=== PATIENT | male | born 1990 | race African-American/Black ===

== ENCOUNTER → 2021-08-28 12:53 | Emergency (ER) | payer SELFPAY ==
[~2021-08-28 12:53] MED LIST: Ketorolac Tromethamine 30 MG/ML VIAL ONE; Morphine 4 MG/ML VIAL ONE; Ondansetron PF 4 MG/2 ML Vial ONE
[2021-08-28 14:38] LABS: #Monocytes 0.9 10x3/uL (0.0-1.1); #Neutrophils 7.5 10x3/uL (1.5-8.4); %Basophils 0.3 % (0.0-2.0); %Eosinophils 0.4 % (0.0-6.0); %Lymphocytes 20.1 % (18.0-47.0); %Monocytes 8.4 % (0.0-10.0); %Neutrophils 70.4 % (40.0-75.0); Hemoglobin 14.6 g/dL (13.5-17.5); Mean Corpuscular Hemoglobin 29.4 pg (27.0-33.0); Mean Corpuscular Volume 89.1 fl (81.2-95.1); Mean Platelet Volume 10.3 fl (7.4-10.4); Platelet Count 245 10x3/uL (150-450); Red Blood Cell (RBC) Count 4.96 10x6/uL (4.32-5.72); White Blood Cell (WBC) Count 10.6 10x3/uL (3.5-10.5)
[2021-08-28 15:01] LABS: ALT (SGPT) 20 U/L (8-55); AST (SGOT) 13 U/L (5-34); Albumin 4.3 g/dL (3.5-5.0); Alkaline Phosphatase 70 U/L (40-110); Anion Gap 13 mmol/L (10-20); BUN (Urea Nitrogen) 11 mg/dL (8.9-20.6); Bilirubin, Total 0.8 mg/dL (0.2-1.2); Calc. Creatinine Clearance 0 mL/min (70-130); Calcium 9.2 mg/dL (7.8-10.44); Carbon Dioxide 24 mmol/L (22-29); Chloride 106 mmol/L (98-107); Globulin 3.1 g/dL (2.4-3.5); Glucose 103 mg/dL (70-105); Lipase 6 U/L (8-78); Potassium 4.4 mmol/L (3.5-5.1); Protein, Total 7.4 g/dL (6.0-8.3); Sodium 139 mmol/L (136-145)
== END | disposition home or self-care (01) ==
LOC: CSHERS 12:53
DX: K57.92 Diverticulitis of intestine, part unspecified, without perforation or abscess without bleeding (principal); R07.9 Chest pain, unspecified
CPT/HCPCS: 71045; 74177; 80053; 83690; 84484; 85025; 93005; 96374; 96375; J1885; J2270; J2405

== ENCOUNTER 2021-11-15 11:07 | Inpatient (IN) | payer OTHER, SELFPAY ==
[2021-11-15] MEDS ORDERED: Ondansetron PF 4 MG/2 ML Vial ONE (11:54)
[2021-11-15 12:09] LABS: #Basophils 0.1 10x3/uL (0.0-0.2); #Monocytes 1.6 10x3/uL (0.0-1.1); #Neutrophils 15.9 10x3/uL (1.5-8.4); %Basophils 0.4 % (0.0-2.0); %Lymphocytes 10.4 % (18.0-47.0); %Monocytes 8.2 % (0.0-10.0); %Neutrophils 80.2 % (40.0-75.0); Hemoglobin 15.1 g/dL (13.5-17.5); Mean Corpuscular HGB CONC 33.9 g/dL (32.0-36.0); Mean Corpuscular Hemoglobin 29.3 pg (27.0-33.0); Mean Corpuscular Volume 86.2 fl (81.2-95.1); Mean Platelet Volume 10.1 fl (7.4-10.4); Platelet Count 249 10x3/uL (150-450); RBC Distribution Width 13.8 % (11.5-14.5); Red Blood Cell (RBC) Count 5.16 10x6/uL (4.32-5.72); White Blood Cell (WBC) Count 19.8 10x3/uL (3.5-10.5)
[2021-11-15 12:46] LABS: ALT (SGPT) 13 U/L (8-55); AST (SGOT) 10 U/L (5-34); Albumin 4.2 g/dL (3.5-5.0); Alkaline Phosphatase 67 U/L (40-110); Anion Gap 16 mmol/L (10-20); BUN (Urea Nitrogen) 10 mg/dL (8.9-20.6); Bilirubin, Total 1.4 mg/dL (0.2-1.2); Calc. Creatinine Clearance 0 mL/min (70-130); Calcium 10.1 mg/dL (7.8-10.44); Carbon Dioxide 23 mmol/L (22-29); Chloride 101 mmol/L (98-107); Globulin 4.2 g/dL (2.4-3.5); Glucose 127 mg/dL (70-105); Lipase 6 U/L (8-78); Potassium 3.7 mmol/L (3.5-5.1); Protein, Total 8.4 g/dL (6.0-8.3); Sodium 136 mmol/L (136-145)
[2021-11-15] MEDS ORDERED: diphenhydrAMINE 50 MG/ML VIAL ONE (13:09)
[2021-11-15] MEDS ORDERED: Ketorolac Tromethamine 30 MG/ML VIAL ONE (13:09)
[2021-11-15] MEDS ORDERED: Piperacillin/Tazobactam 4.5 GM VIAL ONE (13:10)
[2021-11-15] MEDS ORDERED: Metoclopramide HCl 10 MG/2 ML VIAL ONE (13:10)
[2021-11-15] MEDS ORDERED: Ondansetron PF 4 MG/2 ML Vial IVP PRN (13:43)
[2021-11-15] MEDS ORDERED: Ondansetron ODT 4 MG TAB PO PRN (13:43)
[2021-11-15] MEDS ORDERED: Acetaminophen 650 MG Suppository PR PRN (13:43)
[2021-11-15] MEDS ORDERED: Acetaminophen 325 MG TAB PO PRN (13:43)
[2021-11-15] MEDS ORDERED: Piperacillin/Tazobactam 3.375 GM in Sodium Chloride 0.9% 100 ML IVPB SCH (13:45)
[2021-11-15 14:41] VITALS: BMI 56.5
[2021-11-15] MEDS: Sodium Chloride 0.9% 1,000 ML IV SCH (15:00)
[2021-11-15] MEDS: Piperacillin/Tazobactam 3.375 GM in Sodium Chloride 0.9% 100 ML IVPB SCH (16:00)
[2021-11-15] MEDS: Morphine 4 MG/ML VIAL SLOW IVP PRN (20:10)
[2021-11-16] MEDS: Piperacillin/Tazobactam 3.375 GM in Sodium Chloride 0.9% 100 ML IVPB SCH ×3 (01:04→15:47)
[2021-11-16] MEDS: Morphine 4 MG/ML VIAL SLOW IVP PRN ×4 (01:05→21:32)
[2021-11-16] MEDS: Sodium Chloride 0.9% 1,000 ML IV SCH (02:55)
[2021-11-16 05:28] LABS: Anion Gap 16 mmol/L (10-20); BUN (Urea Nitrogen) 11 mg/dL (8.9-20.6); Calc. Creatinine Clearance 367 mL/min (70-130); Calcium 9.2 mg/dL (7.8-10.44); Carbon Dioxide 20 mmol/L (22-29); Chloride 106 mmol/L (98-107); Glucose 97 mg/dL (70-105); Potassium 3.9 mmol/L (3.5-5.1); Sodium 138 mmol/L (136-145)
[2021-11-16 05:32] LABS: #Monocytes 1.4 10x3/uL (0.0-1.1); #Neutrophils 11.8 10x3/uL (1.5-8.4); %Basophils 0.3 % (0.0-2.0); %Lymphocytes 16.6 % (18.0-47.0); %Monocytes 8.8 % (0.0-10.0); %Neutrophils 73.7 % (40.0-75.0); Hemoglobin 13.5 g/dL (13.5-17.5); Mean Corpuscular HGB CONC 33.2 g/dL (32.0-36.0); Mean Corpuscular Hemoglobin 29.3 pg (27.0-33.0); Mean Corpuscular Volume 88.3 fl (81.2-95.1); Mean Platelet Volume 10.2 fl (7.4-10.4); Platelet Count 258 10x3/uL (150-450); RBC Distribution Width 14.2 % (11.5-14.5); Red Blood Cell (RBC) Count 4.61 10x6/uL (4.32-5.72); White Blood Cell (WBC) Count 15.9 10x3/uL (3.5-10.5)
[2021-11-16] MEDS: Lactated Ringer's 1,000 ML IV SCH (08:45)
[2021-11-16 12:16] LABS: Hemoglobin A1c 5.6 % (4.0-6.0)
[2021-11-16 15:38] LABS: SARS-CoV-2 PCR by NAA Not Detected (NotDetected)
[2021-11-17] MEDS: Lactated Ringer's 1,000 ML IV SCH ×2 (01:09→14:19)
[2021-11-17] MEDS: Piperacillin/Tazobactam 3.375 GM in Sodium Chloride 0.9% 100 ML IVPB SCH ×2 (01:27→10:10)
[2021-11-17 05:21] LABS: #Monocytes 1.1 10x3/uL (0.0-1.1); #Neutrophils 8.5 10x3/uL (1.5-8.4); %Basophils 0.3 % (0.0-2.0); %Eosinophils 0.2 % (0.0-6.0); %Lymphocytes 17.4 % (18.0-47.0); %Monocytes 9.6 % (0.0-10.0); %Neutrophils 72.2 % (40.0-75.0); Hemoglobin 12.8 g/dL (13.5-17.5); Mean Corpuscular HGB CONC 32.7 g/dL (32.0-36.0); Mean Corpuscular Volume 88.7 fl (81.2-95.1); Mean Platelet Volume 10.1 fl (7.4-10.4); Platelet Count 301 10x3/uL (150-450); RBC Distribution Width 14.2 % (11.5-14.5); Red Blood Cell (RBC) Count 4.42 10x6/uL (4.32-5.72); White Blood Cell (WBC) Count 11.8 10x3/uL (3.5-10.5)
[2021-11-17] MEDS: Morphine 4 MG/ML VIAL SLOW IVP PRN ×3 (05:47→14:07)
[2021-11-17 05:48] LABS: Anion Gap 15 mmol/L (10-20); BUN (Urea Nitrogen) 7 mg/dL (8.9-20.6); Calc. Creatinine Clearance 383 mL/min (70-130); Calcium 9.3 mg/dL (7.8-10.44); Carbon Dioxide 24 mmol/L (22-29); Chloride 101 mmol/L (98-107); Glucose 99 mg/dL (70-105); Potassium 3.6 mmol/L (3.5-5.1); Sodium 136 mmol/L (136-145)
[2021-11-17 17:47] VITALS: BP 123/88; TEMP 97.2
== END 2021-11-17 16:50 | disposition home or self-care (01) | DRG 872 ==
LOC: CSHERS 11:07 → CSHTELE 13:54
PROVIDERS: ADMIT Family Medicine; ATTEND Family Medicine
DX: A41.9 Sepsis, unspecified organism (principal); K57.32 Diverticulitis of large intestine without perforation or abscess without bleeding; Z68.43 Body mass index [BMI] 50.0-59.9, adult; Z20.822 Contact with and (suspected) exposure to COVID-19; E66.01 Morbid (severe) obesity due to excess calories
CPT/HCPCS: 36415; 74177; 80048; 80053; 83036; 83605; 83690; 85025; 87040; 87045; 87046; 87324; 87328; 87329; 87427; 87449; 94760; 96374; 96375; J1200; J1885; J2270; J2405; J2543; J2765; J3490; J7050; J7120; Q0162; U0003; U0005

== ENCOUNTER 2022-01-23 18:17 | Emergency (ER) | payer OTHER ==
[~2022-01-23 18:17] MED LIST changes: +Iopamidol 300 61% 100 ML VIAL FS ONE; -Ketorolac Tromethamine 30 MG/ML VIAL ONE; -Morphine 4 MG/ML VIAL ONE; -Ondansetron PF 4 MG/2 ML Vial ONE
[2022-01-23 20:18] LABS: #Basophils 0.1 10x3/uL (0.0-0.2); #Monocytes 0.5 10x3/uL (0.0-1.1); #Neutrophils 3.7 10x3/uL (1.5-8.4); %Eosinophils 0.5 % (0.0-6.0); %Lymphocytes 31.1 % (18.0-47.0); %Monocytes 7.4 % (0.0-10.0); %Neutrophils 59.5 % (40.0-75.0); Hemoglobin 11.1 g/dL (13.5-17.5); Mean Corpuscular HGB CONC 31.9 g/dL (32.0-36.0); Mean Corpuscular Hemoglobin 26.7 pg (27.0-33.0); Mean Corpuscular Volume 83.9 fl (81.2-95.1); Mean Platelet Volume 9.3 fl (7.4-10.4); Platelet Count 447 10x3/uL (150-450); RBC Distribution Width 14.5 % (11.5-14.5); Red Blood Cell (RBC) Count 4.15 10x6/uL (4.32-5.72); White Blood Cell (WBC) Count 6.2 10x3/uL (3.5-10.5)
[2022-01-23 20:23] LABS: ALT (SGPT) 61 U/L (8-55); AST (SGOT) 28 U/L (5-34); Albumin 4.1 g/dL (3.5-5.0); Alkaline Phosphatase 71 U/L (40-110); Anion Gap 16 mmol/L (10-20); BUN (Urea Nitrogen) 13 mg/dL (8.9-20.6); Bilirubin, Total 0.6 mg/dL (0.2-1.2); Calc. Creatinine Clearance 0 mL/min (70-130); Calcium 9.9 mg/dL (7.8-10.44); Carbon Dioxide 23 mmol/L (22-29); Chloride 104 mmol/L (98-107); Globulin 4.1 g/dL (2.4-3.5); Glucose 86 mg/dL (70-105); Lipase 8 U/L (8-78); Protein, Total 8.2 g/dL (6.0-8.3); Sodium 139 mmol/L (136-145)
== END 2022-01-23 22:39 | disposition home or self-care (01) ==
LOC: CSHERS 18:17
DX: K57.32 Diverticulitis of large intestine without perforation or abscess without bleeding (principal); I10 Essential (primary) hypertension; Z79.899 Other long term (current) drug therapy
CPT/HCPCS: 36415; 74177; 80053; 83605; 83690; 85025; 87040; 93005